=== PATIENT | male | born 1945 | race Caucasian/White ===

== ENCOUNTER 2017-01-23 12:49 | Observation (INO) | payer OTHER ==
--- NOTE | 2017-01-23 13:41 | CPEKG ---
Heart Rate: 158 RR Interval: 380 QRSD Interval: 86 QT Interval: 308 QTC Interval: 500 QRS [place]: 266 T Wave [place]: 49 EKG Severity - ABNORMAL ECG - EKG Impression: ATRIAL FIBRILLATION WITH RAPID V-RATE EKG Impression: MARKEDLY POSTERIOR QRS AXIS EKG Impression: ST DEPRESSION, PROBABLY RATE RELATED Electronically Signed By: Twyla Graff 23-Jan-2017 17:00:57
[2017-01-23] MEDS ORDERED: DILTIAZEM 25 MG/5 ML VIAL IVP ONE (13:50)
[2017-01-23 13:58] LABS: % IMMATURE GRANULYOCYTES 0.7 % (0.0-1.1); ABSOLUTE IMMATURE GRANULOCYTES 0.05 10^3/uL (0.00-0.10); ADD DIFF? NO; ADD MORPH? NO; ADD SCAN? NO; ATYPICAL LYMPHOCYTE FLAG 0 (0-99); FRAGMENT RBC FLAG 0 (0-99); HEMATOCRIT 47.6 % (40.0-51.0); HEMOGLOBIN 16.8 g/dL (13.7-17.5); LEFT SHIFT FLG 10 (0-99); LIPEMIA HEMOLYSIS FLAG 90 (0-99); MEAN CELL HEMOGLOBIN 31.8 pg (27.9-34.1); MEAN CELL HEMOGLOBIN CONCENTR. 35.3 g/dL (32.4-36.7); MEAN CELL VOLUME 90.2 fL (81.5-99.8); MEAN PLATELET VOLUME 9.9 fL (8.7-11.7); PLATELET CLUMPS FLAG 0 (0-99); PLATELET COUNT 256 10^3/uL (150-400); RED BLOOD CELL COUNT 5.28 10^6/uL (4.40-6.38); RED CELL DISTRIBUTION WIDTH 13.4 % (11.5-15.2)
--- NOTE | 2017-01-23 13:59 | EDPHY ---
HPI/HX/ROS/PE/MDM Narrative: CHIEF COMPLAINT: Lightheadedness, Weakness. HISTORY OF PRESENT ILLNESS: The patient is a 72-year-old male presenting with lightheadedness and weakness that started around 8:30 a.m. The patient is visiting from [place], he flew here 5 days ago. The patient went for a long hike yesterday and felt fine. This morning after breakfast the patient began to feel weak. He went to hike at [place] and developed lightheadedness and dizziness. He took two Aspirin. Patient denies palpitations, chest pain, or shortness of breath. No fever, chills, vomiting, diarrhea, urinary complaints, or headache. The patient drinks a lot of coffee and not much water. REVIEW OF SYSTEMS: Aside from elements discussed in the HPI, a comprehensive 10-point review of systems was reviewed and is negative. PAST MEDICAL HISTORY: Hypertension SOCIAL HISTORY: No drug use. Occasional alcohol use. VITAL SIGNS: Reviewed by me GENERAL: Well-developed, well-nourished, resting comfortably in no respiratory distress. HEENT: Atraumatic. Eyes: No icterus, no injection. Mouth: moist mucous membranes. No erythema or lesions. Neck: supple with no adenopathy. LUNGS: Clear to auscultation bilaterally, no wheezes, rhonchi or rales. CARDIAC: Irregularly irregular, no rubs, murmurs or gallops. ABDOMEN: Soft, nontender, nondistended, bowel sounds normal. BACK: No CVA tenderness. EXTREMITIES: No trauma. Trace edema. Range of motion is normal throughout. NEURO: Alert and oriented, grossly nonfocal. SKIN: Warm and dry, no rash. PSYCHIATRIC: Normal mentation, no agitation. Portions of this note were transcribed by a expert medical writer. I personally performed a history, physical exam, medical decision making, and confirmed accuracy of information the transcribed note. ED Course: The patient presents with rapid atrial fibrillation. Patient is visiting from [place]. Around 8:30 a.m patient felt weak. He went to go for a hike, but felt lightheaded and dizzy. Patient has no cardiac history. Patient was placed on sales and service advisor. IV was established, patient received 20mg Diltiazem. 12-LEAD EKG: Please see the full report in Trace Master. My interpretation: Atrial fibrillation with rapid V-rate. Plan for labs, d-dimer, and troponin. Chest x-ray is ordered. Please see imaging section for chest x-ray results. Laboratory evaluation largely unremarkable. Troponin is normal. D-dimer is pending. Patient was started on Diltiazem drip. Rate remains 132. Plan to admit for new onset of atrial fibrillation. 3:00 p.m.: I spoke to the hospitalist team, the patient will be admitted to Dr. Spain. 4:00 p.m.: Patient converted to sinus rhythm after Diltiazem drip for over 30 minutes. Repeat EKG: Please see the full report in Trace Master. My interpretation: Sinus rhythm, rate 77. MDM: Diff dx considered included afib, aflutter, svt, cardiac ischemia, congestive heart failure, pulmonary emboli, altitude illness, electrolyte abnormalities, renal failure. - Data Points Imaging Results: Imaging Impressions Chest X-Ray 01/23/17 13:50 Impression: 1. Diffuse interstitial lung disease. 2. Lingular atelectasis versus epicardial fat pad. 3. No evidence for CHF. Recommendation: Consider noncontrast high-resolution chest CT to better evaluate the lingular density as well as to characterize the interstitial lung disease. Imaging: Discussed imaging studies w/ call center consultant Radiologist, I viewed and interpreted images myself Laboratory Results: Laboratory Results 01/23/17 13:40 01/23/17 13:40 01/23/17 01/23/17 01/23/17 13:40 13:40 13:40 WBC 6.95 10^3/uL 10^3/uL (3.80-9.50) RBC 5.28 10^6/uL 10^6/uL (4.40-6.38) Hgb 16.8 g/dL g/dL (13.7-17.5) Hct 47.6 % % (40.0-51.0) MCV 90.2 fL fL (81.5-99.8) MCH 31.8 pg pg (27.9-34.1) MCHC 35.3 g/dL g/dL (32.4-36.7) RDW 13.4 % % (11.5-15.2) Plt Count 256 10^3/uL 10^3/uL (150-400) MPV 9.9 fL fL (8.7-11.7) Neut % (Auto) 55.6 % % (39.3-74.2) Lymph % (Auto) 31.1 % % (15.0-45.0) [place] % (Auto) 12.5 % % (4.5-13.0) Eos % (Auto) 0.0 % L % (0.6-7.6) Baso % (Auto) 0.1 % L % (0.3-1.7) Nucleat RBC Rel Count 0.0 % % (0.0-0.2) Absolute Neuts (auto) 3.86 10^3/uL 10^3/uL (1.70-6.50) Absolute Lymphs (auto) 2.16 10^3/uL 10^3/uL (1.00-3.00) Absolute Monos (auto) 0.87 10^3/uL H 10^3/uL (0.30-0.80) Absolute Eos (auto) 0.00 10^3/uL L 10^3/uL (0.03-0.40) Absolute Basos (auto) 0.01 10^3/uL L 10^3/uL (0.02-0.10) Absolute Nucleated RBC 0.00 10^3/uL 10^3/uL (0-0.01) Immature Gran % 0.7 % % (0.0-1.1) Immature Gran # 0.05 10^3/uL 10^3/uL (0.00-0.10) D-Dimer 0.27 ug/mLFEU ug/mLFEU (0.00-0.50) Sodium 144 mEq/L mEq/L (134-144) Potassium 3.6 mEq/L mEq/L (3.5-5.2) Chloride 105 mEq/L mEq/L (97-110) Carbon Dioxide 27 mEq/l mEq/l (22-31) Anion Gap 12 mEq/L mEq/L (8-16) BUN 25 mg/dL H mg/dL (7-23) Creatinine 0.9 mg/dL mg/dL (0.7-1.3) Estimated GFR > 60 Glucose 90 mg/dL mg/dL (70-100) Calcium 9.6 mg/dL mg/dL (8.5-10.4) Troponin I < 0.012 ng/mL ng/mL (0-0.034) NT-Pro-B Natriuret Pep 155 pg/mL H pg/mL (0-125) Medications Given: Discontinued Medications Diltiazem HCl (Cardizem 25 Mg/5 Ml Vial) 20 mg IVP EDNOW ONE Stop: 01/23/17 13:51 Last Admin: 01/23/17 13:59 Dose: 20 mg Diltiazem HCl 125 mg/ Dextrose 125 mls @ 0 mls/hr IV EDNOW ONE; As Directed PRN Reason: Protocol Stop: 01/23/17 14:14 Last Admin: 01/23/17 14:50 Dose: 125 mls General Time Seen by Provider: 01/23/17 13:48 Initial Vital Signs: Initial Vital Signs Temperature (C) 36.9 C 01/23/17 13:08 Heart Rate 105 H 01/23/17 13:08 Respiratory Rate 18 01/23/17 13:08 Blood Pressure 139/120 H 01/23/17 13:08 O2 Sat (%) 98 01/23/17 13:08 O2 Delivery Mode Nasal Cannula O2 (L/minute) 1 Allergies/Adverse Reactions: No Known Allergies Allergy (Unverified 01/23/17 13:13) Home Medications: Medication Instructions Recorded Omeprazole 20 mg PO DAILY PRN 01/23/17 Dabigatran Etexilate Mesyl 150 mg PO BID #60 cap 01/24/17 [Pradaxa 150 MG (*)] Metoprolol Tartrate [Lopressor 25 25 mg PO BID #60 tab 01/24/17 mg (*)] Departure - Departure Disposition: [facility] Acute Clinical Impression: Rapid atrial fibrillation, Weakness Condition: Fair Report Scribed for: Twyla Graff Report Scribed by: Silvia Malagon Date of Report: 01/23/17 Time of Report: 14:03
[2017-01-23 14:07] LABS: ANION GAP 12 mEq/L (8-16); CALCIUM 9.6 mg/dL (8.5-10.4); CARBON DIOXIDE 27 mEq/l (22-31); CHLORIDE 105 mEq/L (97-110); CREATININE 0.9 mg/dL (0.7-1.3); GLOMERULAR FILTRATION RATE > 60; GLUCOSE 90 mg/dL (70-100); POTASSIUM 3.6 mEq/L (3.5-5.2); SODIUM 144 mEq/L (134-144)
[2017-01-23] MEDS ORDERED: DILTIAZEM 125 MG in D5W 125 ML IV ONE (14:13)
[2017-01-23 14:18] LABS: TROPONIN I < 0.012 ng/mL (0-0.034)
[2017-01-23] MEDS ORDERED: ONDANSETRON 4 MG/2 ML VIAL IVP PRN (15:32)
[2017-01-23] MEDS ORDERED: ONDANSETRON DISINTEGRATING 4 MG TAB PO PRN (15:32)
[2017-01-23] MEDS ORDERED: ACETAMINOPHEN 325 MG TAB PO PRN (15:32)
[2017-01-23] MEDS ORDERED: NS W/ 20 KCl/L 1,000 ML IV SCH (15:45)
[2017-01-23] MEDS: METOPROLOL TARTRATE 5 MG/5 ML INJ IVP ONE ×2 (15:53→16:07)
[2017-01-23] MEDS ORDERED: METOPROLOL TARTRATE 5 MG/5 ML INJ ONE (15:53)
--- NOTE | 2017-01-23 16:00 | CPEKG ---
Heart Rate: 77 RR Interval: 779 P-R Interval: 152 QRSD Interval: 84 QT Interval: 376 QTC Interval: 426 P [place]: 73 QRS [place]: 72 T Wave [place]: 48 EKG Severity - NORMAL ECG - EKG Impression: SINUS RHYTHM Electronically Signed By: Twyla Graff 23-Jan-2017 17:00:47
[2017-01-23] MEDS ORDERED: NON-FORMULARY NEW DRUG (Omeprazole [Omeprazole] 20 MG) PO PRN (16:29)
--- NOTE | 2017-01-23 16:32 | PDGENHP ---
History and Physical - Chief Complaint Acute fatigue - History of Present Illness 72-year-old male presenting with acute fatigue characterized as general lethargy with associated shortness of breath, dizziness, lightheadedness with onset of symptoms around 8:30 a.m. on the day of this presentation, duration persistent thereafter. The patient reports that he was at rest, eating breakfast during his onset of symptoms this morning. They seem to be exacerbated with physical activity and he subsequently sought medical attention. He was noted to be in atrial fibrillation with acute rapid ventricular response. The patient's recently traveled to [place] from [place] and has been engaging in hikes since arriving 5 days ago. The patient did note that approximately 2 days ago he did experience significant shortness of breath and fatigue exacerbated by hiking, alleviated with rest. He denies any overt chest pain. He denies any lower extremity edema. He has never experienced similar symptoms. He reports that his baseline level of physical activity is walking and hiking in his home state of [place]. History Information - Allergies/Home Medication List Allergies/Adverse Reactions: No Known Allergies Allergy (Unverified 01/23/17 13:13) Home Medications: Losartan/Hydrochlorothiazide [Hyzaar 100-12.5 Tablet] 1 each PO DAILY 01/23/17 [ Last Taken 01/23/17] Omeprazole 20 mg PO DAILY PRN 01/23/17 [Last Taken Unknown] I have personally reviewed and updated: family history, medical history, social history, surgical history - Past Medical History hypertension Additional medical history: Allergic rhinitis. GERD - Surgical History Additional surgical history: Right eardrum surgery - Family History Additional family history: No family history of coronary artery disease or AFib - Social History Smoking Status: Never smoked Alcohol Use: Occasionally (Approximately 2 alcoholic beverages daily) Drug Use: None Additional social history: Lives in [place], physically active at baseline Review of Systems ROS: 10pt was reviewed & negative except for what was stated in HPI & below Constitutional: Reports: weakness Cardiac: Reports: lightheadedness Respiratory: Reports: shortness of breath Physical Exam Temp Pulse Resp BP Pulse Ox 36.9 C 105 H 18 139/120 H 98 01/23/17 13:08 01/23/17 13:08 01/23/17 13:08 01/23/17 13:08 01/23/17 13:08 Constitutional: no apparent distress, appears nourished, not in pain Eyes: PERRL, anicteric sclera, EOMI Ears, Nose, Mouth, Throat: moist mucous membranes, hearing normal, ears appear normal, no oral mucosal ulcers Cardiovascular: irregularly irregular, tachycardia, No systolic murmur, No edema Respiratory: no respiratory distress, no rales or rhonchi, clear to auscultation Gastrointestinal: normoactive bowel sounds, soft, non-tender abdomen, no palpable masses Skin: other (Benign nevi on back without any surrounding erythema) Neurologic: AAOx3, sensation intact bilaterally, No weakness (Motor 5/5 bilateral upper and lower extremities) Psychiatric: interacting appropriately, not anxious, not encephalopathic, thought process linear Lab Data & Imaging Review 01/23/17 13:40 01/23/17 13:40 WBC 6.95 10^3/uL (3.80-9.50) 01/23/17 13:40 RBC 5.28 10^6/uL (4.40-6.38) 01/23/17 13:40 Hgb 16.8 g/dL (13.7-17.5) 01/23/17 13:40 Hct 47.6 % (40.0-51.0) 01/23/17 13:40 MCV 90.2 fL (81.5-99.8) 01/23/17 13:40 MCH 31.8 pg (27.9-34.1) 01/23/17 13:40 MCHC 35.3 g/dL (32.4-36.7) 01/23/17 13:40 RDW 13.4 % (11.5-15.2) 01/23/17 13:40 Plt Count 256 10^3/uL (150-400) 01/23/17 13:40 MPV 9.9 fL (8.7-11.7) 01/23/17 13:40 Neut % (Auto) 55.6 % (39.3-74.2) 01/23/17 13:40 Lymph % (Auto) 31.1 % (15.0-45.0) 01/23/17 13:40 [place] % (Auto) 12.5 % (4.5-13.0) 01/23/17 13:40 Eos % (Auto) 0.0 % (0.6-7.6) L 01/23/17 13:40 Baso % (Auto) 0.1 % (0.3-1.7) L 01/23/17 13:40 Nucleat RBC Rel Count 0.0 % (0.0-0.2) 01/23/17 13:40 Absolute Neuts (auto) 3.86 10^3/uL (1.70-6.50) 01/23/17 13:40 Absolute Lymphs (auto) 2.16 10^3/uL (1.00-3.00) 01/23/17 13:40 Absolute Monos (auto) 0.87 10^3/uL (0.30-0.80) H 01/23/17 13:40 Absolute Eos (auto) 0.00 10^3/uL (0.03-0.40) L 01/23/17 13:40 Absolute Basos (auto) 0.01 10^3/uL (0.02-0.10) L 01/23/17 13:40 Absolute Nucleated RBC 0.00 10^3/uL (0-0.01) 01/23/17 13:40 Immature Gran % 0.7 % (0.0-1.1) 01/23/17 13:40 Immature Gran # 0.05 10^3/uL (0.00-0.10) 01/23/17 13:40 D-Dimer 0.27 ug/mLFEU (0.00-0.50) 01/23/17 13:40 Sodium 144 mEq/L (134-144) 01/23/17 13:40 Potassium 3.6 mEq/L (3.5-5.2) 01/23/17 13:40 Chloride 105 mEq/L (97-110) 01/23/17 13:40 Carbon Dioxide 27 mEq/l (22-31) 01/23/17 13:40 Anion Gap 12 mEq/L (8-16) 01/23/17 13:40 BUN 25 mg/dL (7-23) H 01/23/17 13:40 Creatinine 0.9 mg/dL (0.7-1.3) 01/23/17 13:40 Estimated GFR > 60 01/23/17 13:40 Glucose 90 mg/dL (70-100) 01/23/17 13:40 Calcium 9.6 mg/dL (8.5-10.4) 01/23/17 13:40 Troponin I < 0.012 ng/mL (0-0.034) 01/23/17 13:40 NT-Pro-B Natriuret Pep 155 pg/mL (0-125) H 01/23/17 13:40 Visualized and Interpreted Chest x-ray results: Yes Chest X-Ray results: other (Faint interstitial markings without any focal airspace disease) Visualized and Interpreted EKG results: Yes EKG Interpretation: Positive for: other (Atrial fibrillation with rapid ventricular response, ST depressions laterally) Assessment & Plan Assessment: 72-year-old male presenting with acute atrial fibrillation with rapid ventricular response Plan: 1. AFib RVR. Acute, new problem this provider, further workup indicated. Heart rate in the 150s range on presentation, chemically converting to normal sinus rhythm on diltiazem drip in the emergency department. Suspect that patient's AFib is exercise and elevation induced. -begin on short-acting oral diltiazem and gauge response, gauge tolerance, continue to monitor on telemetry overnight -again on systemic anticoagulation in case patient returns to AFib RVR and requires DC cardioversion in the a.m. -I have discussed patient's case with Dr. Alfred Ribeiro, he will consider KLEVER and DC cardioversion tomorrow if the patient returns into an AFib rhythm -get echocardiogram, get TSH level -patient's chads 2 Vasc score is 2 and the patient is a candidate for ongoing systemic anticoagulation if he so desires, further discussion should take place with the patient in the a.m. whether to be discharged on Coumadin or DOAC -can convert patient from short-acting diltiazem to sustained release diltiazem tomorrow a.m. if he tolerates -patient will require outpatient stress test, most likely in [place] where he is from -repeat troponin level in a.m. to ensure no delayed rise which would be evidence of myocardial ischemia potentially precipitating his AFib 2. Hypertension. Chronic, hold ARB/HCTZ to monitor tolerance of calcium channel alonzo Diet. Regular, NPO in a.m. in case he requires procedure Prophylaxis. High risk patient, systemically anticoagulated Code. Full Disposition. Anticipated discharge 01/24/2017, pending further workup as outlined above.
[2017-01-23] MEDS: DILTIAZEM 30 MG TAB PO SCH ×2 (17:04→18:55)
[2017-01-23] MEDS ORDERED: PANTOPRAZOLE SODIUM 40 MG TAB PO PRN (17:37)
[2017-01-23] MEDS: ENOXAPARIN 80 MG/0.8 ML SYR SC SCH (20:14)
[2017-01-24] MEDS: DILTIAZEM 30 MG TAB PO SCH ×2 (00:04→06:09)
[2017-01-24 04:05] LABS: % IMMATURE GRANULYOCYTES 0.2 % (0.0-1.1); ABSOLUTE IMMATURE GRANULOCYTES 0.01 10^3/uL (0.00-0.10); ADD DIFF? NO; ADD MORPH? NO; ADD SCAN? NO; ATYPICAL LYMPHOCYTE FLAG 0 (0-99); FRAGMENT RBC FLAG 0 (0-99); HEMATOCRIT 43.3 % (40.0-51.0); LEFT SHIFT FLG 0 (0-99); LIPEMIA HEMOLYSIS FLAG 90 (0-99); MEAN CELL HEMOGLOBIN 31.3 pg (27.9-34.1); MEAN CELL HEMOGLOBIN CONCENTR. 34.6 g/dL (32.4-36.7); MEAN CELL VOLUME 90.2 fL (81.5-99.8); MEAN PLATELET VOLUME 9.7 fL (8.7-11.7); PLATELET CLUMPS FLAG 0 (0-99); PLATELET COUNT 222 10^3/uL (150-400); RED CELL DISTRIBUTION WIDTH 13.3 % (11.5-15.2)
[2017-01-24 04:46] LABS: ANION GAP 8 mEq/L (8-16); CALCIUM 8.9 mg/dL (8.5-10.4); CARBON DIOXIDE 26 mEq/l (22-31); CHLORIDE 107 mEq/L (97-110); CREATININE 0.9 mg/dL (0.7-1.3); GLOMERULAR FILTRATION RATE > 60; GLUCOSE 94 mg/dL (70-100); POTASSIUM 3.8 mEq/L (3.5-5.2); SODIUM 141 mEq/L (134-144)
[2017-01-24 04:58] LABS: TROPONIN I < 0.012 ng/mL (0-0.034)
[2017-01-24] MEDS: ENOXAPARIN 80 MG/0.8 ML SYR SC SCH (08:53)
[2017-01-24] MEDS ORDERED: METOPROLOL TARTRATE 25 MG TAB PO SCH (09:15)
[2017-01-24 11:15] VITALS: TEMP 97.9
[2017-01-24 12:13] VITALS: BP 127/80; PULSE 66; RESP 16; O2SAT 93
--- NOTE | 2017-01-24 15:09 | ECHO ---
[id number] + + [address] : : [place] [address] : : [phone] + + Adult Echocardiographic Report + -----+ :Name: SCOTTIE KOROMA SStudy Date: 01/24/2017 09:23 AM : : Hospital Admission Number: [id number] Location : 217: :: 1945 Gender: Male Height: 73 in : :Age: 72 yrs Race: WH Weight: 175 lb : :Reason For Study: Eval LV Fx : : BSA: 2.0 meters2 : :History: New onset of Atrial Fibrillation : + -----+ MMode/2D Measurements \T\ Calculations IVSd: 0.76 cm LVIDd: 4.6 cm FS: 40.6 % Ao root diam: 3.5 cm LVPWd: 1.1 cm LVIDs: 2.7 cm EDV(Teich): 95.5 ml ACS: 2.0 cm ESV(Teich): 27.3 ml EF(Teich): 71.4 % Normal Measurement Values: + + :LVIDd (3.5-5.7cm) IVSd (0.6-1.1cm) LVPWd (0.6-1.1cm) Aortic Root (2.0-3.7cm)Left Atrium (1.5-4.0cm): :LV Vol(d) (76-115ml) LV Vol(s) (29-48ml) Ejec Fraction (50-65%)PV Arthur (0.6- 1.2m/s) TV Arthur (0.4-1.0m/s) : :MV E Arthur (0.8-1.0m/s)MV A Arthur (0.3-1.0m/s)LVOT Arthur (0.7-1.2m/s) Asc Ao Arthur ( 0.9-1.8m/s) : + + Doppler Measurements \T\ Calculations MV E max arthur: Ao V2 max: AI max arthur: LV V1 max: 72.6 cm/sec 101.8 cm/sec 255.2 cm/sec 103.2 cm/sec MV A max arthru: Ao max PG: AI max P.0 mmHgLV V1 max P.5 cm/sec 4.1 mmHg AI dec slope: 4.3 mmHg MV E/A: 0.94 93.2 cm/sec2 AI P1/2t: 801.7 msec PA V2 max: 77.4 cm/sec PA max P.4 mmHg Left Ventricle The left ventricle is normal in size. There is normal left ventricular wall thickness. The left ventricular ejection fraction is normal. There is Doppler evidence for diastolic dysfunction. Ejection Fraction = 72%. The left ventricular wall motion is normal. Right Ventricle The right ventricle is normal in size and function. Atria The left atrial size is normal. Right atrial size is normal. Mitral Valve The mitral valve is normal in structure and function. There is trace mitral regurgitation. Tricuspid Valve Normal tricuspid valve. No tricuspid regurgitation. Aortic Valve The aortic valve opens well. There is no aortic stenosis. Trace to mild aortic regurgitation. Pulmonic Valve The pulmonic valve is not well visualized. There is no pulmonic valvular regurgitation. Great Vessels The aortic root is normal size. Pericardium/Pleural There is no pericardial effusion. Conclusion A complete two-dimensional transthoracic echocardiogram was performed (2D, M-mode, Doppler and color flow Doppler). (1) Left ventricular systolic ejection fraction was normal (70-75%) - normal wall motion (2) No left ventricular hypertrophy (3) Diastolic dysfunction was present (4) Normal right ventricular size and function (5) Normal atrial dimensions (6) Physiologic mitral regurgitation (7) Poor visualization of the aortic valve without sclerosis. Trace/mild insufficiency was noted. Likely trileaflet, but not well visualized in this study (8) Grossly normal tricuspid valve (9) Poor visualization of the pulmonic valve (10) No comparison echocardiograms Final Reading Physician: GersonJessica Tong signed on 01/24/2017 03:07 PM Ordering Physician: Alfred Spain Performed By: Danny Vega RDCS
--- NOTE | 2017-01-24 20:04 | GDS ---
[f rep st] DISCHARGE SUMMARY ALL DIAGNOSES: 1. Atrial fibrillation with rapid ventricular response. 2. History of hypertension. 3. Possible interstitial lung disease. HOSPITAL COURSE: This is a 72-year-old man who presented with shortness of breath. Found to be in atrial fibrillation with RVR. Started on diltiazem drip. Converted to sinus rhythm. Been transitioned to p.o. metoprolol. I had a long discussion with him regarding his CVA risk with this episode of atrial fibrillation. For one, he was in AFib a very short period of time. For two, he would prefer to take aspirin as CVA prophylaxis. I told him that he has about 2.5% of annual risk of having a stroke. He requested a prescription for Pradaxa (risks, benefits as above explained including intracerebral hemorrhage as well as GI bleed), and he will consider taking this. His echocardiogram shows a structurally normal heart. He did not have a rise in his troponins with 2 subsequent troponins checked. His chest x-ray showed diffuse interstitial lung disease. Follow-up X-ray the day of discharge showed improvement. I believe that this represents pulmonary edema, although a primary pulmonary process cannot be ruled out. He knows to get a repeat X-ray at home to assess for resolution. Also to return to the ED if he becomes more short of breath. /[id number]/MODL MTDD
== END 2017-01-24 18:31 | disposition home or self-care (01) ==
LOC: F2W 17:33
PROVIDERS: ADMIT Internal Medicine; ATTEND Student in an Organized Health Care Education/Training Program
PROC: B246ZZZ Ultrasonography of Right and Left Heart (ICD-10-PCS; principal; 2017-01-24)
DX: I48.91 Unspecified atrial fibrillation (principal); R53.1 Weakness; I10 Essential (primary) hypertension; J84.9 Interstitial pulmonary disease, unspecified; K21.9 Gastro-esophageal reflux disease without esophagitis
CPT/HCPCS: 71010; 71020; 93005; 93306; G0378; J1650; 96374